=== PATIENT | female | born 1945 | race Caucasian/White ===

== ENCOUNTER 2019-03-11 12:43 | Inpatient (IN) | payer OTHER ==
[2019-03-11] MEDS ORDERED: SODIUM CHLORIDE 1,000 ML IV STA ×4 (12:57→16:51)
[2019-03-11] MEDS ORDERED: SODIUM CHLORIDE 400 ML IV STA (12:57)
[2019-03-11] MEDS ORDERED: ACETAMINOPHEN INJECTION 100 ML IVPB ONE (12:58)
[2019-03-11] MEDS ORDERED: ACETAMINOPHEN 1000 MG/100 ML VIAL (NON FORMULARY) IVPB ONE (12:58)
--- NOTE | 2019-03-11 13:32 | PDOC ---
Documentation entered by Cesar Rendon SCRIBE, acting as scribe for Nash Peacock MD. Nash Peacock MD: This documentation has been prepared by the Justice clement Daniel, SCRIBE, under my direction and personally reviewed by me in its entirety. I confirm that the documentation accurately reflects all work, treatment, procedures, and medical decision making performed by me. Attending Attestation - Resident Resident Name: David Falk - ED Attending Attestation I have performed the following: I have examined & evaluated the patient, The case was reviewed & discussed with the resident, I agree w/resident's findings & plan - HPI HPI: 03/11/19 13:22 The patient is a 73 year old female with a past medical history of CHF here today from [place] for evaluation of lethargy and fever. The patient was found to be lethargic and have a fever at [place]. Patient is unresponsive in bed and unable to provide history. Allergies: NKA PCP: Raffaele Lorenzo - Physicial Exam PE: 03/11/19 13:22 GENERAL: The patient is responsive to painful stimuli only. Warm to touch. HEAD: Normal with no signs of trauma. EYES: Eyes closed. ENT: Ears normal, nares patent, oropharynx clear without exudates. Moist mucous membranes. NECK: Normal range of motion, supple without lymphadenopathy, JVD, or masses. LUNGS: +coarse breath sounds bilaterally. Breath sounds equal. HEART: +tachycardia. Regular rhythm, normal S1 and S2 without murmur or rub. ABDOMEN: +diffuse abdominal tenderness to palpation. +abdominal wall edema. Soft. BS wnl. No guarding or rebound. No palpable masses. No hepatosplenomegaly. EXTREMITIES: +left wrist splint in place. + 3+ pitting edema of left upper extremity and 1-2+ pitting edema of left left lower extremity. Normal range of motion. No clubbing or cyanosis. No cords, erythema, or tenderness. NEUROLOGICAL: Cranial nerves II through XII grossly intact. PSYCH: Normal mood, normal affect. SKIN: Warm, Dry, normal turgor, no rashes or lesions noted. - Critical Care Time Total Critical Care Time: 110 Critical Care Statement: The care of this patient involved high complexity decision making to prevent further life threatening deterioration of the patient 's condition and/or to evaluate & treat vital organ system(s) failure or risk of failure. - Medical Decision Making 03/11/19 13:26 73y/o F from [facility] with depressed mental status/unresponsiveness today, EMS activated and patient found febrile, hypotensive, tachycardic. No prior history in EMR and pt nonverbal at this time. Presents with SIRS/sepsis and hypotension. sepsis protocol initiated IV fluids resuscitation with 30cc/kg depressed mental status and unresponsiveness, may require intubation for airway protection - will control fever then reassess broad spectrum abx for HCA infection admission, ICU 03/11/19 15:50 intubated with RSI without difficulty. sedated on vent. BP stabilized, ICU at bedside. Pt rhythm reverted to afib with rvr on ekg. Diltiazem for rate control, continue monitoring and ICU admission. PRBC ordered with admitting team for hgb 7 03/11/19 16:20 HR not responding to diltiazem, BP now 85 systolic. dig load, reassess HR, ICU admission - if rate controlled and remain hypotensive , may require pressor support Heart Score/ECG Review #1 ECG reviewed & interpreted by me at: 12:51 General ECG Interpretation: Sinus Rhythm (sinus tach at 111), Normal Intervals ( qtc 388), No acute ischemic changes (nonspecific t wave change) #2 ECG reviewed & interpreted by me at: 15:20 03/11/19 16:25 afib with RVR at 139, nonpecific T wave change.
[2019-03-11 13:34] LABS: BASO % 0.2 % (0-2.0); EOS % 0.1 % (0-4.5); HEMATOCRIT 21.2 % (32.4-45.2); LYMPH % 27.7 % (8-40); MCH 32.6 pg (25.7-33.7); MCHC 32.9 g/dl (32.0-36.0); MEAN PLT VOLUME 7.3 fl (7.5-11.1); MONO % 2.5 % (3.8-10.2); NEUT % 69.5 % (42.8-82.8); PLATELET COUNT 127 K/MM3 (134-434); RBC 2.14 M/mm3 (3.60-5.2); RDW 21.4 % (11.6-15.6); WHITE BLOOD COUNT 2.5 K/mm3 (4.0-10.0)
[2019-03-11] MEDS ORDERED: ETOMIDATE 20 MG/10 ML AMPUL IVPUSH ONE ×2 (13:43→13:53)
[2019-03-11] MEDS ORDERED: ROCURONIUM BROMIDE 50 MG/5 ML VIAL IV ONE (13:43)
[2019-03-11 13:45] LABS: INR 1.29 (0.83-1.09); PROTHROMBIN TIME (PATIENT) 15.3 SEC (9.7-13.0)
[2019-03-11 13:47] LABS: ACTIVATED PTT 34.1 SECONDS (25.2-36.5)
[2019-03-11 13:53] LABS: VENOUS PC02 40.1 mmHg (38-52); VENOUS PH 7.44 (7.31-7.41)
[2019-03-11 13:54] LABS: VENOUS PO2 < 49 mmHg (28-48)
[2019-03-11 14:01] LABS: EPI CELLS >36 /HPF (0-5/HPF); HYALINE CASTS 11 /lpf (0-8); URINE APPEARANCE CLOUDY; URINE BACTERIA 1.7 /hpf (NEGATIVE); URINE BILIRUBIN NEGATIVE (NEGATIVE); URINE COLOR YELLOW; URINE GLUCOSE (UA) NEGATIVE (NEGATIVE); URINE KETONE NEGATIVE (NEGATIVE); URINE LEUK ESTERASE 3+ (NEGATIVE); URINE NITRITE NEGATIVE (NEGATIVE); URINE PROTEIN NEGATIVE (NEGATIVE); URINE RBC 2 /hpf (0-4); URINE WBC 88 /hpf (0-5)
[2019-03-11 14:08] LABS: ALBUMIN 1.3 g/dl (3.4-5.0); BILIRUBIN,TOTAL 0.9 mg/dL (0.2-1); BLOOD UREA NITROGEN 23.4 mg/dL (7-18); CREATININE 1.3 mg/dL (0.55-1.3); POTASSIUM 4.2 mmol/L (3.5-5.1); TOT PROT 5.1 g/dl (6.4-8.2)
[2019-03-11] MEDS ORDERED: VANCOMYCIN 1 GM in D5W (PRE-DOCKED) 1,000 MG/250 ML IVPB ONE (14:09)
[2019-03-11] MEDS ORDERED: PIPERACILLIN/TAZOB 3.375 GM 3.375 GM in DEXTROSE 5%-WATER - 50 ML IVPB ONE (14:09)
[2019-03-11] MEDS ORDERED: RAPID SEQUENCE INTUBATION KIT NR ONE (14:13)
--- NOTE | 2019-03-11 14:26 | PDOC ---
History of Present Illness - General Chief Complaint: SIRS, Suspected/Possible Stated Complaint: Blood Pressure Problem Time Seen by Provider: 03/11/19 12:52 - History of Present Illness Initial Comments: 03/11/19 14:06 Ms. Torres is a 73 yo female w/ pmh of glaucoma, CHF, rheumatic mitral stenosis , chronic leg pain w/ chronic wounds SHELLY, GERD, constipation, and HTN BIBA from [facility] for evaluation of hypotension and decreased mental status. Patient reportedly had fevers as well. Patient/EMS unable to provide other history. Past History - Past Medical History Allergies/Adverse Reactions: Allergies Allergy/AdvReac Type Severity Reaction Status Date / Time No Known Allergies Allergy Verified 03/11/19 12:48 Home Medications: Ambulatory Orders Brimonidine Tartrate [Alphagan P 0.1% -] 1 drop OU BID 03/11/19 Calcium Carbonate Suspension - [Calcium Carb Oral Suspension -] 15 ml PO TID PRN 03/11/19 Collagenase Clostridium Hist. [Santyl -] 1 applic TP DAILY 03/11/19 Famotidine 40 mg PO DAILY 03/11/19 Furosemide 40 mg PO DAILY 03/11/19 Gabapentin 300 mg PO TID 03/11/19 Ipratropium/Albuterol Sulfate [Iprat-Albut 0.5-3(2.5) mg/3 ml] 3 ml IH QID 03/11 Losartan Potassium 50 mg PO DAILY 03/11/19 Magnesium Hydroxide [Milk of Magnesia] 400 mg PO DAILY PRN 03/11/19 Magnesium Oxide 400 mg PO DAILY 03/11/19 Methadone HCl 110 mg PO DAILY 03/11/19 Nystatin Powder [Nystop Topical Powder -] 30 gm TP DAILY 03/11/19 Oxycodone HCl/Acetaminophen [Percocet 5-325 mg Tablet] 1 tab PO Q6H PRN Pantoprazole Sodium 40 mg PO DAILY 03/11/19 Polyethylene Glycol 3350 [Glycolax] 17 gm PO HS 03/11/19 Sod Phos Di, [place]/K Phos [place] [K-Phos Neutral Tablet] 250 mg PO BID 03/11/19 Travoprost [Travatan Z] 5 ml OP HS 03/11/19 COPD: No CHF: Yes GI Disorders: Yes (gerd, constipation) HTN: Yes Other medical history: chronioc lower ext cellulitis - Psycho Social/Smoking Cessation Hx Smoking History: Unknown if ever smoked Have you smoked in the past 12 months: No Information on smoking cessation initiated: No Hx Alcohol Use: No Drug/Substance Use Hx: No Review of Systems - Review of Systems Comments:: 03/11/19 14:07 Unable to obtain further. *Physical Exam - Vital Signs Last Vital Signs Temp Pulse Resp BP Pulse Ox 102.8 F H 123 H 24 H 80/53 L 91 L 03/11/19 12:49 03/11/19 12:49 03/11/19 12:49 03/11/19 12:49 03/11/19 12:49 - Physical Exam Comments: 03/11/19 14:07 GENERAL: +Patient minimally responsive and warm to touch. HEAD: No signs of trauma, normocephalic, atraumatic EYES: PERRLA, EOMI, sclera anicteric, conjunctiva clear ENT: Auricles normal inspection, nares patent, oropharynx clear without exudates. Moist mucosa NECK: Normal ROM, supple, no lymphadenopathy, JVD, or masses LUNGS: +Course lung sounds SHELLY HEART: Regular rate and rhythm, normal S1 and S2, no murmurs, rubs or gallops, peripheral pulses normal and equal bilaterally. ABDOMEN: +Abdomen full w/ grimace appreciate w/ palpation of LLQ. Normoactive bowel sounds. No guarding, no rebound. No masses EXTREMITIES: +SHELLY chronic leg wounds wrapped to lower extremities. LUE/LLE edematous. NEUROLOGICAL: +Unable to assess SKIN: +Warm to touch, edematous as above Procedures - Central Line Central Line Lumen: triple Central Line Position: internal jugular (R) Anesthesia: 1% Lidocaine Amount of anesthesia (ccs): 2 Complications: none Post Central Line Insertion: sutured, good blood return, position confirmed w/ CXR - Intubation Time of Intubation: 14:00 Intubation Method: orotracheal Blade used: Mac Tube Size (Fr): 7.5 Medications: Etomidate, Rocuronium Tube position @ lip (cm): 22 Tube position confirmed by: Direct visualization, CO2 detector, Chest x-ray, Breath sounds Breath Sounds after Intubation: equal Intubation Complications: no complications Post Intubation Xray: Yes ED Treatment Course - LABORATORY CBC & Chemistry Diagram: 03/11/19 13:16 03/11/19 13:16 - ADDITIONAL ORDERS Additional order review: Laboratory Results 03/11/19 03/11/19 03/11/19 13:40 13:16 13:16 PT with INR 15.30 H INR 1.29 H PTT (Actin FS) 34.1 VBG pH 7.44 H POC VBG pCO2 40.1 POC VBG pO2 < 49 H VBG HCO3 26.5 VBG O2 Sat (Nicanor) 57.2 L VBG Base Excess 2.6 H Urine Color Yellow Urine Appearance Cloudy Urine pH 8.0 Ur Specific [place] 1.014 Urine Protein Negative Urine Glucose (UA) Negative Urine Ketones Negative Urine Blood Negative Urine Nitrite Negative Urine Bilirubin Negative Urine Urobilinogen 1.0 Ur Leukocyte Esterase 3+ H Urine WBC (Auto) 88 Urine RBC (Auto) 2 Urine Casts (Auto) 11 U Epithel Cells (Auto) >36 Urine Bacteria (Auto) 1.7 03/11/19 13:16 RBC 2.14 L MCV 99.0 H MCHC 32.9 RDW 21.4 H MPV 7.3 L Neutrophils % 69.5 Lymphocytes % 27.7 Monocytes % 2.5 L Eosinophils % 0.1 Basophils % 0.2 - RADIOLOGY Radiology Studies Ordered: Category Date Time Status ABDOMEN & PELVIS CT W/O CONTR [CT] Stat CT Scan 03/11/19 12:58 Ordered CHEST X-RAY PORTABLE* [RAD] Stat Radiology 03/11/19 12:52 Ordered - Medications Given in the ED: ED Medications Discontinued Medications Generic Name Dose Route Start Last Admin Trade Name Freq PRN Reason Stop Dose Admin Acetaminophen 1,000 mg 03/11/19 12:58 03/11/19 13:46 Ofirmev Injection - IVPB 03/11/19 12:59 1,000 mg ONCE ONE Administration Sodium Chloride 1,000 mls @ 1,000 mls/hr 03/11/19 12:57 03/11/19 13:46 Normal Saline - IV 03/11/19 13:56 1,000 mls/hr ASDIR STA Administration Sodium Chloride 1,000 mls @ 1,000 mls/hr 03/11/19 12:57 03/11/19 14:01 Normal Saline - IV 03/11/19 13:56 1,000 mls/hr ASDIR STA Administration Medical Decision Making - Medical Decision Making 03/11/19 14:07 Ms. Torres is a 73 yo female w/ pmh as described who presents in acute sepsis. Patient evaluated with sepsis labs and 30cc/kg fluids ordered for repletement. Patient intubated for airway protection given repeat exam of increasing respiratory effort w/ continued AMS/inability to protect airway. Patient covered empirically w/ vanc/zosyn and will be admitted for sepsis care. 03/11/19 15:31 Patient found to be septic as below. 3L NS given. Patient pressures improved. Patient admitted to hospitalist. Patient noted to be tachy to 140's in sinus. Repeat EKG ordered. Patient found to be in rapid afib w/ RVR. 10 of diltiazem ordered. 03/11/19 18:07 Patient continued to have HR in 140's, 10 of diltiazem again ordered. Patient noted to be in afib w/ RVR on EKG; digoxin ordered. Central line placed as above for continuing hypotension. Repeat EKG ordered. 03/11/19 18:35 Patient noted to continue to be in afib. Patient also noted to be anemic. Additional digoxin ordered. Patient son contacted and permission obtained for transfusion. Son alerted that patient was intubated with central line emergently prior to call given situation. Patient will be transfused. 03/11/19 18:55 Central line confirmed by Xray in place. Pressors ordered. Discharge - Discharge Information Problems reviewed: Yes Clinical Impression/Diagnosis: Severe sepsis - Admission Yes - Follow up/Referral - Patient Discharge Instructions - Post Discharge Activity
[2019-03-11] MEDS ORDERED: LORazepam 2 MG/ML SDV VIAL ONE ×2 (14:28→15:56)
[2019-03-11] MEDS ORDERED: PIPERACILLIN/TAZOB 3.375 GM 3.375 GM/50 ML BAG IVPB ONE ×2 (14:28→14:31)
[2019-03-11 14:29] LABS: YEAST PRESENT (NEGATIVE)
[2019-03-11] MEDS ORDERED: VANCOMYCIN 1 GRAM (PRE-DOCKED) 1,000 MG/250 ML BAG IVPB ONE (14:53)
[2019-03-11 14:56] LABS: ANISOCYTOSIS 1+; MACROCYTOSIS 1+; PLATELET ESTIMATE DECREASED
[2019-03-11] MEDS ORDERED: dilTIAZem HCL 50 MG/10 ML - 10 ML VIAL IVPUSH ONE ×2 (15:26→15:39)
[2019-03-11] MEDS ORDERED: dilTIAZem HCL 125 MG/25 ML - 25 ML VIAL ONE (15:29)
[2019-03-11 15:31] LABS: ARTERIAL BLD GAS O2 SATURATION 99.3 % (95-98); ARTERIAL BLOOD GAS PCO2 46.3 mmHg (35-45); ARTERIAL BLOOD GAS PO2 146 mmHg (80-100); ARTERIAL BLOOD GAS pH 7.32 (7.35-7.45); CARBOXYHEMOGLOBIN 1.2 % (0-2)
[2019-03-11 15:32] LABS: ALLENS TEST POSITIVE
--- NOTE | 2019-03-11 15:38 | HP ---
Admitting History and Physical - Primary Care Physician PCP: Raffaele Lorenzo - Admission History of Present Illness: Patient is a 73 y/o male with past medical history of Glaucoma, CHF, Rheumatic Mitral Stenosis Chronic Leg pain with chronic B/L leg wounds, GERD, Constipation , and HTN. Patient was BIBEMS from [facility] for hypotension, fevers, and increased lethargy. While in ER patient noted to be febrile with rectal temp 102F, hypotensive with BP systolically in 80s, tachycardic with HR in 120s showing afib. In ER patient intubated and placed on mechanical ventilator. Unable to obtain history due to patient being intubated and sedated. History Source: Medical Record Limitations to Obtaining History: Clinical Condition - Past Medical History Cardiovascular: Yes: CHF, HTN, Other (Mitral Stenosis) Gastrointestinal: Yes: GERD - Smoking History Smoking history: Unknown if ever smoked Have you smoked in the past 12 months: No - Alcohol/Substance Use Hx Alcohol Use: No - Social History Usual Living Arrangement: Yes: Group Home ADL: Support Services Home Medications - Allergies Allergies/Adverse Reactions: Allergies Allergy/AdvReac Type Severity Reaction Status Date / Time No Known Allergies Allergy Verified 03/11/19 12:48 - Home Medications Home Medications: Ambulatory Orders Brimonidine Tartrate [Alphagan P 0.1% -] 1 drop OU BID 03/11/19 Calcium Carbonate Suspension - [Calcium Carb Oral Suspension -] 15 ml PO TID PRN 03/11/19 Collagenase Clostridium Hist. [Santyl -] 1 applic TP DAILY 03/11/19 Famotidine 40 mg PO DAILY 03/11/19 Furosemide 40 mg PO DAILY 03/11/19 Gabapentin 300 mg PO TID 03/11/19 Ipratropium/Albuterol Sulfate [Iprat-Albut 0.5-3(2.5) mg/3 ml] 3 ml IH QID 03/11 Losartan Potassium 50 mg PO DAILY 03/11/19 Magnesium Hydroxide [Milk of Magnesia] 400 mg PO DAILY PRN 03/11/19 Magnesium Oxide 400 mg PO DAILY 03/11/19 Methadone HCl 110 mg PO DAILY 03/11/19 Nystatin Powder [Nystop Topical Powder -] 30 gm TP DAILY 03/11/19 Oxycodone HCl/Acetaminophen [Percocet 5-325 mg Tablet] 1 tab PO Q6H PRN Pantoprazole Sodium 40 mg PO DAILY 03/11/19 Polyethylene Glycol 3350 [Glycolax] 17 gm PO HS 03/11/19 Sod Phos Di, [place]/K Phos [place] [K-Phos Neutral Tablet] 250 mg PO BID 03/11/19 Travoprost [Travatan Z] 5 ml OP HS 03/11/19 Family Medical History Family History: Unable to Obtain Review of Systems Unable to obtain ROS, reason: due to intubation Physical Examination Vital Signs: Vital Signs Temperature 102.8 F H 03/11/19 12:49 Pulse Rate 123 H 03/11/19 13:00 Respiratory Rate 14 03/11/19 14:53 Blood Pressure 100/68 03/11/19 13:00 O2 Sat by Pulse Oximetry (%) 92 L 03/11/19 13:00 Constitutional: Yes: No Distress Eyes: Yes: Conjunctiva Clear HENT: Yes: Atraumatic Cardiovascular: Yes: Tachycardia Respiratory: Yes: Regular, Diminished, Mechanically Ventilated Gastrointestinal: Yes: Soft, Hypoactive Bowel Sounds Renal/: Yes: Gale Present Musculoskeletal: Yes: Muscle Weakness Edema: Yes (b/l lower extremity) Integumentary: Yes: Other (chronic leg wound b/l) Wound/Incision: Yes: Dressing Dry and Intact Neurological: Yes: Other (sedated) Labs: CBC, BMP 03/11/19 13:16 03/11/19 13:16 Imaging - Results Chest X-ray: Report Reviewed Problem List - Problems (1) Hypotension Assessment/Plan: -Received 3L NS bolus in ER -BP meds held -maintain MAP >60 -possible central line for pressors Code(s): I95.9 - HYPOTENSION, UNSPECIFIED (2) Anemia Assessment/Plan: -Hg 7.0 -type and screen -1U PRBC transfusion ordered -Stool OB -GI consult -Iron panel -monitor Hg daily and transfuse for Hg <7.0 to avoid overload Code(s): D64.9 - ANEMIA, UNSPECIFIED (3) Severe sepsis Assessment/Plan: -ID consult -ICU consult -WBC 2.5 -LA 4.3~4.5 -received Vancomycin and Zosyn in ER -UA shows 3+ leuks -UC and BC pending -CXR shows bilateral effusions and some basilar atelectasis or infiltrate on the left Code(s): A41.9 - SEPSIS, UNSPECIFIED ORGANISM; R65.20 - SEVERE SEPSIS WITHOUT SEPTIC SHOCK (4) Rapid atrial fibrillation Assessment/Plan: -Cardiology consult -received digoxin and cardizem in ER -tele monitoring -repeat EKG to see if rhythm converted -Echocardiogram -Lovenox SQ -troponin 0.07, will repeat and monitor for uptrend -Spoke with Dr Jansen from Cardiology given patient hypotensive state avoid Lopressor or Cardizem for rate control to avoid dropping BP, recommends Digoxin 0.5mg IVP q4h for 4 doses Code(s): I48.91 - UNSPECIFIED ATRIAL FIBRILLATION Assessment/Plan see problem list
[2019-03-11] MEDS ORDERED: DIGOXIN 0.5 MG/2 ML AMPUL IVPUSH ONE ×2 (16:09→18:20)
[2019-03-11] MEDS ORDERED: METOPROLOL TARTRATE 5 MG/5 ML VIAL IVPUSH PRN (16:33)
--- NOTE | 2019-03-11 16:48 | CONSULT ---
Consultation: REQUESTING PROVIDER: CONSULT REQUEST: We have been asked to medically evaluate this patient for ICU HISTORY OF PRESENT ILLNESS: 73 yo F w/ PMH of CHF, Rheumatic mitral stenosis, glaucoma, HTN, from [facility] presented to ED for lethargy and hypotension. In the ED, pt was unable to maintain her airway and was intubated. pt is in septic shock, pressures have been labile throughout course in ED. Pt is s/p 3 L IVF. In the ED, pt was also found to be in rapid Afib ( rates >140) despite 20 mg diltiazem with MAP of 60. unable to obtain history from patient as she is intubated and sedated. REVIEW OF SYSTEMS: Unable to obtain as pt is intubated and sedated PHYSICAL EXAMINATION Vital Signs - 24 hr 03/11/19 03/11/19 03/11/19 12:46 12:49 13:00 Temperature 102.8 F H Pulse Rate 123 H Pulse Rate [ 89 123 H Left Radial] Respiratory 19 24 H 19 Rate Blood Pressure 80/53 L Blood Pressure 86/48 L 100/68 [Right Arm] O2 Sat by Pulse 91 L 91 L 92 L Oximetry (%) 03/11/19 03/11/19 03/11/19 14:53 15:00 15:59 Temperature 99.5 F Pulse Rate Pulse Rate [ 146 H Left Radial] Respiratory 14 20 Rate Blood Pressure Blood Pressure 126/78 [Right Arm] O2 Sat by Pulse Oximetry (%) 03/11/19 16:00 Temperature Pulse Rate Pulse Rate [ 136 H Left Radial] Respiratory 20 Rate Blood Pressure Blood Pressure 98/53 L [Right Arm] O2 Sat by Pulse 100 Oximetry (%) GENERAL: sedated and intubated HEAD: Normal with no signs of trauma. EYES: Pupils equally sluggish EARS, NOSE, THROAT:poor dentation, moist mucus membranes NECK: +JVD LUNGS: vent sounds b/l, + crackles b/l . No accessory muscle use. HEART: tachycardic and irregular rhythm, + S1 and S2 ABDOMEN: Soft, nontender, not distended, normoactive bowel sounds UPPER EXTREMITIES: L extremity has cast on wrist LOWER EXTREMITIES:2+ peripheral edema LLE. b/l venous stasis ulceration Laboratory Last Values WBC 2.5 K/mm3 (4.0-10.0) L 03/11/19 13:16 RBC 2.14 M/mm3 (3.60-5.2) L 03/11/19 13:16 Hgb 7.0 GM/dL (10.7-15.3) L 03/11/19 13:16 Hct 21.2 % (32.4-45.2) L 03/11/19 13:16 MCV 99.0 fl (80-96) H 03/11/19 13:16 MCH 32.6 pg (25.7-33.7) 03/11/19 13:16 MCHC 32.9 g/dl (32.0-36.0) 03/11/19 13:16 RDW 21.4 % (11.6-15.6) H 03/11/19 13:16 Plt Count 127 K/MM3 (134-434) L 03/11/19 13:16 MPV 7.3 fl (7.5-11.1) L 03/11/19 13:16 Absolute Neuts (auto) 1.7 K/mm3 (1.5-8.0) 03/11/19 13:16 Neutrophils % 69.5 % (42.8-82.8) 03/11/19 13:16 Lymphocytes % 27.7 % (8-40) 03/11/19 13:16 Monocytes % 2.5 % (3.8-10.2) L 03/11/19 13:16 Eosinophils % 0.1 % (0-4.5) 03/11/19 13:16 Basophils % 0.2 % (0-2.0) 03/11/19 13:16 Nucleated RBC % 0 % (0-0) 03/11/19 13:16 Hypochromia 0 03/11/19 13:16 Platelet Estimate Decreased 03/11/19 13:16 Polychromasia 0 03/11/19 13:16 Poikilocytosis 0 03/11/19 13:16 Anisocytosis 1+ 03/11/19 13:16 Microcytosis 0 03/11/19 13:16 Macrocytosis 1+ 03/11/19 13:16 PT with INR 15.30 SEC (9.7-13.0) H 03/11/19 13:16 INR 1.29 (0.83-1.09) H 03/11/19 13:16 PTT (Actin FS) 34.1 SECONDS (25.2-36.5) 03/11/19 13:16 Anticoagulation Therapy No Result Required. 03/11/19 15:18 Puncture Site Right radial 03/11/19 15:18 ABG pH 7.32 (7.35-7.45) L 03/11/19 15:18 ABG pCO2 at Pt Temp 46.3 mmHg (35-45) H 03/11/19 15:18 ABG pO2 at Pt Temp 146 mmHg (80-100) H 03/11/19 15:18 ABG HCO3 23.2 mmol/L (22-27) 03/11/19 15:18 ABG O2 Sat (Measured) 99.3 % (95-98) H 03/11/19 15:18 ABG O2 Content 6.7 % vol 03/11/19 15:18 ABG Base Excess -2.0 meq/l (-2-2) 03/11/19 15:18 Hollis Test Positive 03/11/19 15:18 VBG pH 7.44 (7.31-7.41) H 03/11/19 13:16 POC VBG pCO2 40.1 mmHg (38-52) 03/11/19 13:16 POC VBG pO2 < 49 mmHg (28-48) H 03/11/19 13:16 VBG HCO3 26.5 mmol/L (23-29) 03/11/19 13:16 VBG O2 Sat (Nicanor) 57.2 % (70-80) L 03/11/19 13:16 VBG Base Excess 2.6 meq/l (-2-2) H 03/11/19 13:16 Carboxyhemoglobin 1.2 % (0-2) 03/11/19 15:18 Methemoglobin < 1.0 % (0-2) 03/11/19 15:18 O2 Delivery Device No Result Required. 03/11/19 15:18 Oxygen Flow Rate 100 03/11/19 15:18 Vent Mode No Result Required. 03/11/19 15:18 Vent Rate No Result Required. 03/11/19 15:18 Mechanical Rate No Result Required. 03/11/19 15:18 PEEP 5.0 cmH2O 03/11/19 15:18 Pressure Support Vent No Result Required. 03/11/19 15:18 Sodium 140 mmol/L (136-145) 03/11/19 13:16 Potassium 4.2 mmol/L (3.5-5.1) 03/11/19 13:16 Chloride 104 mmol/L (98-107) 03/11/19 13:16 Carbon Dioxide 27 mmol/L (21-32) 03/11/19 13:16 Anion Gap 9 MMOL/L (8-16) 03/11/19 13:16 BUN 23.4 mg/dL (7-18) H 03/11/19 13:16 Creatinine 1.3 mg/dL (0.55-1.3) 03/11/19 13:16 Est GFR (CKD-EPI)AfAm 46.80 03/11/19 13:16 Est GFR (CKD-EPI)NonAf 40.38 03/11/19 13:16 Random Glucose 69 mg/dL (74-106) L 03/11/19 13:16 Lactic Acid 4.5 mmol/L (0.4-2.0) H* 03/11/19 15:51 Calcium 7.0 mg/dL (8.5-10.1) L 03/11/19 13:16 Total Bilirubin 0.9 mg/dL (0.2-1) 03/11/19 13:16 AST 54 U/L (15-37) H 03/11/19 13:16 ALT 29 U/L (13-61) 03/11/19 13:16 Alkaline Phosphatase 129 U/L (45-117) H 03/11/19 13:16 Troponin I 0.07 ng/ml (0.00-0.05) H 03/11/19 13:16 Total Protein 5.1 g/dl (6.4-8.2) L 03/11/19 13:16 Albumin 1.3 g/dl (3.4-5.0) L 03/11/19 13:16 Urine Color Yellow 03/11/19 13:40 Urine Appearance Cloudy 03/11/19 13:40 Urine pH 8.0 (5.0-8.0) 03/11/19 13:40 Ur Specific [place] 1.014 (1.010-1.035) 03/11/19 13:40 Urine Protein Negative (NEGATIVE) 03/11/19 13:40 Urine Glucose (UA) Negative (NEGATIVE) 03/11/19 13:40 Urine Ketones Negative (NEGATIVE) 03/11/19 13:40 Urine Blood Negative (NEGATIVE) 03/11/19 13:40 Urine Nitrite Negative (NEGATIVE) 03/11/19 13:40 Urine Bilirubin Negative (NEGATIVE) 03/11/19 13:40 Urine Urobilinogen 1.0 mg/dL (0.2-1.0) 03/11/19 13:40 Ur Leukocyte Esterase 3+ (NEGATIVE) H 03/11/19 13:40 Urine WBC (Auto) 88 /hpf (0-5) 03/11/19 13:40 Urine RBC (Auto) 2 /hpf (0-4) 03/11/19 13:40 Urine Casts (Auto) 11 /lpf (0-8) 03/11/19 13:40 U Epithel Cells (Auto) >36 /HPF (0-5/HPF) 03/11/19 13:40 U Sm Round Cell (Auto) None seen 03/11/19 13:40 Urine Bacteria (Auto) 1.7 /hpf (NEGATIVE) 03/11/19 13:40 Urine Yeast (Auto) Present (NEGATIVE) 03/11/19 13:40 Crossmatch See Detail 03/11/19 15:51 Current Medications Chlorhexidine Gluconate (Hibiclens For Decolonization -) 1 applic TP HS KHLOE Heparin Sodium (Porcine) (Heparin -) 5,000 unit SQ BID KHLOE Piperacillin Sod/Tazobactam (Sod 2.25 gm/ Dextrose) 50 mls @ 100 mls/hr IVPB Q6H-IV KHLOE; Protocol Metoprolol Tartrate (Lopressor Injection -) 5 mg IVPUSH Q4H PRN PRN Reason: TACHYCARDIA Mupirocin (Bactroban Ointment (For Decolonization) -) 1 applic NS BID KHLOE Stop: 03/16/19 21:59 CXR: There are no prior studies at this time for comparison. There are bilateral effusions and some basilar atelectasis or infiltrate on the left. There is a large heart, sclerotic knob, ET tube with tip well above beverley and prominent hilar markings / pulmonary outflow tract. There is a left-sided clip. There are degenerative spine and shoulder changes. Correlation and follow-up recommended. ASSESSMENT/PLAN: 73 yo F w/ PMH of CHF, Rheumatic mitral stenosis, glaucoma, HTN admitted to ICU for septic shock. Neuro: Acute toxic metabolic encephalopathy -acquire baseline -CT head once stable Cardio: CHF, Septic Shock, rapid Afib, rheumatic mitral stenosis , HTN -continuous cardiac monitoring -EKG: rapid Afib. CXR reviewed -s/p 20 mg Diltiazem -s/p dig 0.4 mg , rpt dig load w/ 0.5 mg x1 . pt rhythm was no longer Afib. cardio contacted. recommended to correct underlying cause. -Echo -Duplex u/s to r/o DVT -cardio recs appreciated -RIJ placed. Levo started, vaso, phenylepherine started. will consider steroids -trop 0.07, trend to peak Pulm: -intubated to protect airway -ABG reviewed ID: Septic Shock -lactate 4.5, will rpt -UA: 3+ leuk est -awaiting estrada culture -c/w merrem -ID recs appreciated -CT abdomen/pelvis -urine legionella Ag -doxy 100 q12 to cover Heme: Pancytopenia -continue to monitor -rpt CBC Endo: -When pt was in ICU, BGM was monitored and found to be 20. pt was given 2 amps of D50. continue to monitor BGM F/E/N -s/p 3L IVF -NPO -monitor lytes Spoke with son Nadeem [phone] over the phone. He states his mother is Full code. Dispo: We will continue to follow the patient. Thank you for this consultative opportunity. Visit type - Emergency Visit Emergency Visit: Yes ED Registration Date: 03/11/19 Care time: The patient presented to the Emergency Department on the above date and was hospitalized for further evaluation of their emergent condition. - New Patient This patient is new to me today: Yes Date on this admission: 03/12/19 - Critical Care Critical Care patient: Yes Total Critical Care Time (in minutes): 36 Critical Care Statement: The care of this patient involved high complexity decision making to prevent further life threatening deterioration of the patient 's condition and/or to evaluate & treat vital organ system(s) failure or risk of failure. ATTENDING PHYSICIAN STATEMENT I saw and evaluated the patient. I reviewed the resident's note and discussed the case with the resident. I agree with the resident's findings and plan as documented. SUBJECTIVE: OBJECTIVE: ASSESSMENT AND PLAN:
[2019-03-11] MEDS ORDERED: ENOXAPARIN NA (PORCINE) 80 MG/0.8 ML DISP.SYRIN SQ SCH (17:15)
[2019-03-11] MEDS ORDERED: ACETAMINOPHEN 1000 MG/100 ML VIAL (NON FORMULARY) IVPB PRN (17:45)
[2019-03-11] MEDS ORDERED: ENOXAPARIN NA (PORCINE) 80 MG/0.8 ML DISP.SYRIN SQ ONE (18:35)
[2019-03-11] MEDS ORDERED: DIGOXIN 0.5 MG/2 ML AMPUL ONE (18:35)
[2019-03-11] MEDS ORDERED: NOREPINEPHRINE BITARTRATE 4,000 MCG in DEXTROSE 5%-WATER - 496 ML IV SCH (19:00)
[2019-03-11] MEDS ORDERED: NOREPINEPHRINE BITARTRATE 4 MG/4 ML ML IV ONE ×2 (19:04→23:41)
--- NOTE | 2019-03-11 19:11 | PN ---
Progress Note (short form) - Note Progress Note: ICU consult dictated imp/reccd sepsis- ?urinary, unable to image due to severe sepsis respiratory failure afib with rapid ventricular response-echo anemia anasarca with albumin of 1.3 overall prognosis is poor would suggest imaging when stable, head, chest abd/pelvis contact [facility] the [place] [facility] vanco/meropenem given recent admission and "isolation" at [facility] per son d/w ICU resident d/w son by phone overall prognosis is guarded and quite poor given admission albumin of 1.3- ?liver disease over 40 minutes spent in the care of this critically ill ICU patient Problem List - Problems (1) Severe sepsis Code(s): A41.9 - SEPSIS, UNSPECIFIED ORGANISM; R65.20 - SEVERE SEPSIS WITHOUT SEPTIC SHOCK (2) Respiratory failure Code(s): J96.90 - RESPIRATORY FAILURE, UNSP, UNSP W HYPOXIA OR HYPERCAPNIA (3) Anemia Code(s): D64.9 - ANEMIA, UNSPECIFIED (4) Rapid atrial fibrillation Code(s): I48.91 - UNSPECIFIED ATRIAL FIBRILLATION
--- NOTE | 2019-03-11 19:57 | CONS ---
INFECTIOUS DISEASE CONSULTATION DATE OF CONSULTATION: 03/11/2019 REQUESTING PHYSICIAN: Lrary Lowe MD This is a 73-year-old woman with past medical history of heart failure, rhabdomyolysis. She has apparently systolic and diastolic heart failure as well as rheumatic mitral stenosis and opioid dependence. She has hypertension as well. [facility] for evaluation of lethargy and fever. In the ER, she was unresponsive. They could not get any history. She had a fever of 102. She was in rapid atrial fibrillation. Sepsis protocol was initiated. She received IV fluid resuscitation. She required intubation. She got broad-spectrum antibiotics with vancomycin and Zosyn, and I am asked to see her for further evaluation. As the patient could not give any history and the history in the chart is very limited, the ICU was attempting to call the [facility] for further [facility]. I spoke with her son who reports that mom was transferred from [facility] to [facility] on March 04, 2019. She was apparently at [facility] for 2 weeks. She had fallen and broken her wrist, and there, too, she had an ICU admission. She was in some form of isolation there as well. He thinks she had a urinary tract infection. He does not know the details. PAST MEDICAL HISTORY: Notable for the rhabdomyolysis, vitamin D deficiency, heart failure, and rheumatic mitral stenosis. She also has opioid dependence that he says she has been on methadone for as long as he has known her. She has a history of hypertension. He reports that she has had multiple falls. She broke her wrist on this last fall. She has had leg ulcers for over 20 years. She has had a broken hip in the past as well. He reports that she has a clip on 1 of her heart valves. He does not know which one, which was done 6 months ago at [facility]. He reports in the last 12 months, she has had a progressive downhill course, and she is no longer ambulating. ALLERGIES: She has no known drug allergies. MEDICATIONS AT THE CORRECTION: Notable for MiraLAX, pantoprazole, methadone, magnesium oxide, losartan, gabapentin, furosemide, famotidine, Santyl for her legs. SOCIAL HISTORY: She was apparently living alone, and she had a home health aide prior to her admission to [facility]. She had fallen and was on the floor about 12 hours before her aide found her. He denies any history of alcohol or substance use recently, and as far as he has known her, she has been on the methadone. REVIEW OF SYSTEMS: Not available. PHYSICAL EXAMINATION: Vital Signs: Her T-max was 102.8; current temperature is 99.5; pulse of 129; blood pressure is 81/44, respiratory rate of 15. She is saturating 100%. She is intubated with a FiO2 of 100%. HEENT: She is normocephalic. She is unresponsive. Neck: Supple. Lungs: Diminished breath sounds at the bases. Heart: Tachycardic and irregular. Abdomen: Firm. She has edema all over. She has subcutaneous edema of her skin extending throughout her abdomen, her legs, and arms. Extremities: She has shallow ulcers on both her legs, that are clean without any drainage. LABORATORY DATA: Her white count is 2.5 with a hemoglobin of 7; platelets are 127. Her INR is 1.2. Her BUN is 23 and creatinine 1.3 with a lactic acid of 4.5, AST of 54, ALT of 29, alkaline phosphatase of 129. Troponin is 0.07. Her albumin is 1.3. Urinalysis has no protein, but has 3+ leukocyte esterase with 88 white cells. Urine and blood cultures have been sent. Chest x-ray is notable for bilateral effusions, some basilar atelectasis with a large heart. ET tube is in place. There is a left-sided clip. In summary, this is an elderly woman with severe sepsis, possibly urinary. We have been unable to image due to severe sepsis with respiratory failure, atrial fibrillation with rapid ventricular response, anemia which apparently she has had in the past. She required 4 units of blood at her last admission to [facility]. She has anasarca with an albumin of 1.3 and no protein in her urine. Her overall prognosis is poor. Would suggest imaging when stable, head, chest, abdomen, and pelvis. Contact isolation. Records from the [facility] or [facility]. Would escalate her antibiotics to vancomycin and meropenem given the recent admission and the fact that she was in some sort of isolation. Her overall prognosis is quite poor. The son was informed by phone, and her care was discussed. Case was discussed with the ICU resident as well. ANGELICALuna [id number]
[2019-03-11] MEDS ORDERED: PIPERACILLIN/TAZOB 4.5 GM 4.5 GM in DEXTROSE 5%-WATER 100 ML IVPB SCH (20:00)
[2019-03-11] MEDS ORDERED: MEROPENEM 1 GM VIAL (RESTRICTED TO ID) IVPB ONE ×2 (20:55→22:10)
[2019-03-11] MEDS ORDERED: PIPERACILLIN/TAZOB 2.25 GM 2.25 GM in DEXTROSE 5%-WATER - 50 ML IVPB SCH (21:00)
[2019-03-11] MEDS: MEROPENEM 1 GM in DEXTROSE 5%-WATER 100 ML IVPB SCH ×2 (21:09→22:06)
[2019-03-11] MEDS ORDERED: DIGOXIN 0.5 MG/2 ML AMPUL IVPUSH SCH (21:15)
[2019-03-11 21:34] LABS: ARTERIAL BLD GAS O2 SATURATION 93.3 % (95-98); ARTERIAL BLOOD GAS BASE EXCESS -12.8 meq/l (-2-2); ARTERIAL BLOOD GAS PCO2 45.6 mmHg (35-45); ARTERIAL BLOOD GAS PO2 85.9 mmHg (80-100)
[2019-03-11 21:35] LABS: ALLENS TEST POSITIVE
[2019-03-11 21:38] LABS: ARTERIAL BLOOD GAS pH 7.14 (7.35-7.45)
[2019-03-11] MEDS ORDERED: SODIUM BICARBONATE 8.4% 50 MEQ/50 ML DISP.SYRIN IVPUSH ONE ×2 (21:38→21:39)
[2019-03-11] MEDS ORDERED: HEPARIN NA (PORCINE) 5,000 UNITS/ML 1ML VIAL SQ SCH (22:00)
[2019-03-11] MEDS ORDERED: MUPIROCIN 2% TOPICAL OINTMENT FOR DECOLONIZATION NS SCH (22:00)
[2019-03-11] MEDS ORDERED: CHLORHEXIDINE GLUCONATE 4% CLEANSER FOR DECOLONIZATION TP SCH (22:00)
[2019-03-11] MEDS ORDERED: DOXYCYCLINE INJECTION 100 MG in DEXTROSE 5%-WATER 100 ML IVPB SCH (22:00)
[2019-03-11] MEDS ORDERED: DEXTROSE 5%-WATER 100 ML IVPB ONE (22:10)
[2019-03-11] MEDS ORDERED: MIDAZOLAM IN 0.9 % SOD.CHLORID 100 MG/100 ML PLAST..BAG IVPB SCH (22:15)
[2019-03-11] MEDS ORDERED: DEXTROSE 50%-WATER - 25 GM/50 ML VIAL IVPUSH PRN (22:21)
[2019-03-11] MEDS ORDERED: DEXTROSE 50%-WATER - 25 GM/50 ML VIAL IVPUSH ONE (22:21)
[2019-03-11] MEDS ORDERED: DEXTROSE 50%-WATER 25 GM/50 ML DISP.SYRIN ONE ×2 (22:22→22:24)
[2019-03-11 22:55] VITALS: BMI 29.5
[2019-03-11] MEDS ORDERED: SODIUM BICARBONATE 8.4% 50 MEQ/50 ML VIAL ONE (22:55)
[2019-03-11] MEDS ORDERED: fentaNYL CITRATE 250 MCG/5 ML VIAL ONE (22:55)
[2019-03-11] MEDS ORDERED: SODIUM BICARBONATE 8.4% - 150 MEQ in DEXTROSE 5%-WATER - 1,000 ML IVPB ONE (23:00)
[2019-03-11] MEDS ORDERED: FENTANYL INJECTION 500 MCG in DEXTROSE 5%-WATER - 90 ML IVPB SCH (23:00)
[2019-03-11] MEDS ORDERED: VASOPRESSIN 50 UNITS in SODIUM CHLORIDE 97.5 ML IVPB SCH (23:15)
[2019-03-11] MEDS ORDERED: VASOPRESSIN 20 UNITS/ML VIAL IV ONE (23:16)
[2019-03-11] MEDS ORDERED: PHENYLEPHRINE HCL 20,000 MCG in SODIUM CHLORIDE 248 ML IVPB SCH (23:30)
[2019-03-12 00:29] LABS: ARTERIAL BLD GAS O2 SATURATION 88.2 % (95-98); ARTERIAL BLOOD GAS BASE EXCESS -19.2 meq/l (-2-2); ARTERIAL BLOOD GAS PO2 75.4 mmHg (80-100)
[2019-03-12] MEDS ORDERED: HYDROCORTISONE SOD SUCCINATE 100 MG/2 ML VIAL IVPUSH SCH ×2 (00:45→00:59)
[2019-03-12] MEDS: MEROPENEM 1 GM in DEXTROSE 5%-WATER 100 ML IVPB SCH (01:01)
[2019-03-12] MEDS ORDERED: PHENYLEPHRINE HCL 10 MG/1 ML SINGLE DOSE VIAL ONE (01:34)
[2019-03-12] MEDS ORDERED: VANCOMYCIN 1,000 MG in DEXTROSE 5%-WATER - 250 ML IVPB SCH (02:00)
[2019-03-12 02:12] VITALS: TEMP 98.6
[2019-03-12 03:43] LABS: BASO % 0.3 % (0-2.0); EOS % 1.1 % (0-4.5); LYMPH % 34.6 % (8-40); MCH 32.1 pg (25.7-33.7); MEAN CELL VOLUME 106.8 fl (80-96); MEAN PLT VOLUME 8.8 fl (7.5-11.1); MONO % 4.1 % (3.8-10.2); NEUT % 59.9 % (42.8-82.8); PLATELET COUNT 52 K/MM3 (134-434); RBC 1.12 M/mm3 (3.60-5.2); RDW 20.5 % (11.6-15.6); WHITE BLOOD COUNT 6.2 K/mm3 (4.0-10.0)
[2019-03-12 03:57] LABS: ALBUMIN 0.4 g/dl (3.4-5.0); BILIRUBIN,TOTAL 0.6 mg/dL (0.2-1); BLOOD UREA NITROGEN 21.5 mg/dL (7-18); CREATININE 1.6 mg/dL (0.55-1.3); MAGNESIUM 1.6 mg/dL (1.8-2.4); PHOSPHOROUS 7.4 mg/dL (2.5-4.9); POTASSIUM 5.6 mmol/L (3.5-5.1); TOT PROT 1.8 g/dl (6.4-8.2)
[2019-03-12 03:57] LABS: HEMOGLOBIN 3.6 GM/dL (10.7-15.3)
[2019-03-12 03:59] LABS: CALCIUM 6.5 mg/dL (8.5-10.1)
--- NOTE | 2019-03-12 04:36 | PN ---
Progress Note, Physician Chief Complaint: HGb 3.5 massive transfusion protocol initiated blood bank was contacted 2 U PRBCs started immediately. - Current Medication List Current Medications: Active Medications Acetaminophen (Ofirmev Injection -) 1,000 mg IVPB Q6H PRN PRN Reason: FEVER Chlorhexidine Gluconate (Hibiclens For Decolonization -) 1 applic TP HS KHLOE Last Admin: 03/11/19 22:06 Dose: 1 applic Dextrose (D50w (Vial) -) 25 gm IVPUSH PRN PRN PRN Reason: HYPOGLYCEMIA Hydrocortisone Sodium Succinate (Solu-Cortef -) 100 mg IVPUSH Q8H-IV KHLOE Last Admin: 03/12/19 01:00 Dose: 100 mg Norepinephrine Bitartrate 4, (000 mcg/ Dextrose) 500 mls @ 37.5 mls/hr IV TITR KHLOE; Protocol Last Titration: 03/12/19 02:12 Dose: 28 mcg/min, 210 mls/hr Meropenem 1 gm/ Dextrose 100 mls @ 200 mls/hr IVPB Q8H-IV KHLOE Last Admin: 03/12/19 01:01 Dose: 200 mls/hr Doxycycline Hyclate 100 mg/ (Dextrose) 100 mls @ 100 mls/hr IVPB BID KHLOE Last Admin: 03/11/19 22:06 Dose: 100 mls/hr Fentanyl 500 mcg/ Dextrose 100 mls @ 1 mls/hr IVPB TITR KHLOE; Protocol Last Admin: 03/11/19 23:23 Dose: 25 mcg/hr, 5 mls/hr Vasopressin 50 units/ Sodium (Chloride) 100 mls @ 4 mls/hr IVPB ASDIR KHLOE; Protocol Last Admin: 03/11/19 23:22 Dose: 6 units/hr, 12 mls/hr Phenylephrine HCl 20,000 mcg/ (Sodium Chloride) 250 mls @ 75 mls/hr IVPB ASDIR KHLOE; Protocol Last Titration: 03/12/19 02:13 Dose: 170 mcg/min, 127.5 mls/hr Mupirocin (Bactroban Ointment (For Decolonization) -) 1 applic NS BID KHLOE Stop: 03/16/19 21:59 Last Admin: 03/11/19 23:13 Dose: 1 applic Pantoprazole Sodium (Protonix Iv) 40 mg IVPUSH DAILY [facility] - Objective Vital Signs: Vital Signs Temperature 98.6 F 03/12/19 02:08 Pulse Rate 96 H 03/12/19 02:08 Respiratory Rate 14 03/12/19 04:00 Blood Pressure 129/75 03/12/19 02:08 O2 Sat by Pulse Oximetry (%) 94 L 03/12/19 00:17 Labs: CBC, BMP 03/12/19 03:15 03/12/19 02:00 INR, PTT INR 1.29 (0.83-1.09) H 03/11/19 13:16
[2019-03-12 04:41] VITALS: BP 78/40; PULSE 74
[2019-03-12] MEDS ORDERED: EPINEPHrine 1:10,000 (P-F SYR) 1 MG/10 ML DISP.SYRIN ONE (04:59)
--- NOTE | 2019-03-12 05:04 | RAPID ---
Physical Examination Vital Signs: Vital Signs Temperature 98.6 F 03/12/19 02:08 Pulse Rate 74 03/12/19 04:00 Respiratory Rate 14 03/12/19 04:00 Blood Pressure 78/40 L 03/12/19 04:00 O2 Sat by Pulse Oximetry (%) 94 L 03/12/19 00:17 Monitor showed bradycardia with irregular rhythm, no pulses were palpated. pt in PEA. code 99 was initiated at 4:45 ACLS protocol was started pt received total of 7 epinephrin and 2 Bicarb pt was bleeding from GI system, fazal red blood from mouth, melanotic stools from rectum. no heart sounds or breath sounds heard. no corneal reflexes, wide dilated pupils Please refer to code sheet for details. pt was pronounced at 5 AM Family notified. Labs: CBC, BMP 03/12/19 03:15 03/12/19 02:00
--- NOTE | 2019-03-12 05:38 | RAPID ---
Physical Examination Vital Signs: Code 99 called overhead 4:46AM. lining machine operator team responded immediately. Vital Signs Temperature 98.6 F 03/12/19 02:08 Pulse Rate 74 03/12/19 04:00 Respiratory Rate 14 03/12/19 04:00 Blood Pressure 78/40 L 03/12/19 04:00 O2 Sat by Pulse Oximetry (%) 94 L 03/12/19 00:17 ACS protocol was initiated. Please refer to code sheet for details. At 5:00 AM time of was pronounced. No heart sounds or breath sounds were noted. Family was present and was notified. Labs: CBC, BMP 03/12/19 03:15 03/12/19 02:00
[2019-03-12] MEDS ORDERED: DEXTROSE 5%-WATER 100 ML IVPB ONE (05:56)
[2019-03-12] MEDS ORDERED: MEROPENEM 1 GM VIAL (RESTRICTED TO ID) IVPB ONE (05:56)
[2019-03-12 06:33] LABS: ANISOCYTOSIS 1+; MACROCYTOSIS 2+
[2019-03-12 06:34] LABS: PLATELET ESTIMATE DECREASED
[2019-03-12] MEDS ORDERED: PANTOPRAZOLE SODIUM 40 MG VIAL IVPUSH SCH (10:00)
--- NOTE | 2019-03-12 11:02 | EKG ---
Test Reason : Blood Pressure : / mmHG Vent. Rate : 149 BPM Atrial Rate : 102 BPM P-R Int : 000 ms QRS Dur : 084 ms QT Int : 268 ms P-R-T Axes : 000 -20 113 degrees QTc Int : 422 ms SUPRAVENTRICULAR TACHYCARDIA LOW VOLTAGE QRS CANNOT RULE OUT ANTERIOR INFARCT (CITED ON OR BEFORE 11-MAR-2019) ABNORMAL ECG WHEN COMPARED WITH ECG OF 11-MAR-2019 18:10, SINUS RHYTHM HAS REPLACED ATRIAL FIBRILLATION QUESTIONABLE CHANGE IN INITIAL FORCES OF SEPTAL LEADS Confirmed by GIOVANI ACUÑA, JUDITH ([id number]) on 03/12/2019 11:02:17 AM Referred By: Confirmed By:JUDITH MATUTE MD
--- NOTE | 2019-03-12 11:03 | EKG ---
Test Reason : Blood Pressure : / mmHG Vent. Rate : 128 BPM Atrial Rate : 129 BPM P-R Int : 000 ms QRS Dur : 088 ms QT Int : 276 ms P-R-T Axes : 000 -30 153 degrees QTc Int : 402 ms ATRIAL FIBRILLATION WITH RAPID VENTRICULAR RESPONSE LEFT AXIS DEVIATION LOW VOLTAGE QRS SEPTAL INFARCT (CITED ON OR BEFORE 11-MAR-2019) ABNORMAL ECG WHEN COMPARED WITH ECG OF 11-MAR-2019 15:20, QUESTIONABLE CHANGE IN INITIAL FORCES OF SEPTAL LEADS Confirmed by JUDITH MATUTE MD ([id number]) on 03/12/2019 11:02:47 AM Referred By: Confirmed By:JUDITH MATUTE MD
--- NOTE | 2019-03-12 11:03 | EKG ---
Test Reason : Blood Pressure : / mmHG Vent. Rate : 139 BPM Atrial Rate : 138 BPM P-R Int : 000 ms QRS Dur : 086 ms QT Int : 260 ms P-R-T Axes : 000 -28 110 degrees QTc Int : 395 ms ATRIAL FIBRILLATION WITH RAPID VENTRICULAR RESPONSE LOW VOLTAGE QRS SEPTAL INFARCT (CITED ON OR BEFORE 11-MAR-2019) ABNORMAL ECG WHEN COMPARED WITH ECG OF 11-MAR-2019 12:51, ATRIAL FIBRILLATION HAS REPLACED SINUS RHYTHM QUESTIONABLE CHANGE IN INITIAL FORCES OF SEPTAL LEADS Confirmed by GIOVANI ACUÑA, JUDITH ([id number]) on 03/12/2019 11:03:24 AM Referred By: Confirmed By:JUDITH MATUTE MD
[2019-03-12] MEDS ORDERED: PIPERACILLIN/TAZOB 2.25 GM 2.25 GM in DEXTROSE 5%-WATER - 50 ML IVPB SCH (21:00)
== END 2019-03-12 06:00 | disposition expired | DRG 871 ==
LOC: JER 12:43 → JERBED 14:51 → JICU 21:41
PROVIDERS: ADMIT Family Medicine; ATTEND Family Medicine
PROC: 5A1935Z Respiratory Ventilation, Less than 24 Consecutive Hours (ICD-10-PCS; principal; 2019-03-11)
PROC: 0BH17EZ Insertion of Endotracheal Airway into Trachea, Via Natural or Artificial Opening (ICD-10-PCS; 2019-03-11)
DX: A41.9 Sepsis, unspecified organism (principal); J96.90 Respiratory failure, unspecified, unspecified whether with hypoxia or hypercapnia; R65.21 Severe sepsis with septic shock; J98.11 Atelectasis; D61.818 Other pancytopenia; I48.91 Unspecified atrial fibrillation; R00.1 Bradycardia, unspecified; D64.9 Anemia, unspecified; I10 Essential (primary) hypertension; I11.0 Hypertensive heart disease with heart failure; I50.9 Heart failure, unspecified; I05.0 Rheumatic mitral stenosis; K21.9 Gastro-esophageal reflux disease without esophagitis; I95.9 Hypotension, unspecified
CPT/HCPCS: 36415; 36430; 36511; 36600; 71045-TC-FY; 76700-TC; 80053; 81003; 82272; 82375; 82550; 82803; 82962; 83050; 83605; 83735; 84100; 84484; 85025; 85610; 85730; 86850; 86900; 86901; 86922; 87040; 87077; 87086; 87186; 93005; 93010; 93970-TC; 94002; 99285-25; J0131; J7030; P9038; P9058